=== PATIENT | female | born 1955 | race Caucasian/White ===

== ENCOUNTER 2024-05-25 12:50 | Emergency (ER) | payer MEDICARE, BC ==
[~2024-05-25] VITALS: Ht 157.5 cm; Wt 68.2 kg
[2024-05-25 13:22] VITALS: BP 207/107; PULSE 101; RESP 16; TEMP 96.8; O2SAT 97
== END 2024-05-25 15:31 | disposition home or self-care (01) ==
LOC: ER 12:50
DX: S63.630A Sprain of interphalangeal joint of right index finger, initial encounter (principal); Y04.0XXA Assault by unarmed brawl or fight, initial encounter; Y93.89 Activity, other specified; Y92.89 Other specified places as the place of occurrence of the external cause; Y99.8 Other external cause status
CPT/HCPCS: 29130; 73140; 99283